=== PATIENT | female | born 1955 | race Hispanic/Latino ===

== ENCOUNTER 2018-02-28 17:58 | Emergency (ER) | payer BC ==
--- NOTE | 2018-02-28 18:58 | ER ---
Nurse's Notes [facility] Name: Sofie Marino Age: 63 yrs Sex: Female : 1955 Arrival Date: 02/28/2018 Time: 18:00 Bed 23 Private MD: Diagnosis: Fracture of fifth metatarsal bone-Right;Fracture of fourth metatarsal bone-Right Presentation: 02/28 18:01 Presenting complaint: Patient states: "I missed a step going down the stairs and fell aa5 forward". Pt reports falling down from about half a flight of stairs. Pt c/o right foot and right ankle pain. Denies LOC, denies head injury. Transition of care: patient was not received from another setting of care. Onset of symptoms was February 28, 2018 at 17:00. Risk Assessment: Do you want to hurt yourself or someone else? Patient reports no desire to harm self or others. Initial Sepsis Screen: Does the patient meet any 2 criteria? No. Patient's initial sepsis screen is negative. Does the patient have a suspected source of infection? No. Patient's initial sepsis screen is negative. Care prior to arrival: None. 18:01 Method Of Arrival: Wheelchair aa5 18:01 Acuity: PRIYANKA 3 aa5 Historical: - Allergies: 18:03 No Known Allergies; aa5 - PMHx: 18:03 cluster headaches; Fibromyalgia; aa5 - PSHx: 18:03 ; aa5 - Immunization history:: Adult Immunizations up to date. - Social history:: Smoking status: Patient/guardian denies using tobacco. - Ebola Screening: : No symptoms or risks identified at this time. Screenin:50 Abuse screen: Denies threats or abuse. Denies injuries from another. Nutritional kr2 screening: No deficits noted. Tuberculosis screening: No symptoms or risk factors identified. Fall Risk Fall in past 12 months (25 points). Gait- Impaired (20 pts.). Assessment: 18:10 General: Appears in no apparent distress. comfortable, well groomed, well developed, kr2 well nourished, Behavior is calm, cooperative, appropriate for age. Pain: Complains of pain in right foot Pain radiates to right leg Pain currently is 10 out of 10 on a pain scale. Quality of pain is described as aching, tender, Is continuous, Alleviated by rest, cold application, Aggravated by weight bearing. Neuro: Level of Consciousness is awake, alert, obeys commands, Oriented to person, place, time, situation, Appropriate for age. Cardiovascular: Capillary refill < 3 seconds in bilateral fingers Patient's skin is warm and dry. Respiratory: Airway is patent Respiratory effort is even, unlabored, Respiratory pattern is regular, symmetrical. GI: Abdomen is flat, non-distended, Patient currently denies nausea, vomiting. EENT: Nares are clear bilaterally Oral mucosa is moist. Derm: Skin is intact, is healthy with good turgor, Skin is pink, warm \\T\\ dry. Musculoskeletal: Circulation, motion, and sensation intact. Swelling present in right foot. Injury Description: fall after missing a step on stairs resulting in foot pain. Denies having pain anywhere else, skin is intact. 19:35 Reassessment: Patient appears in no apparent distress at this time. Patient and/or kr2 family updated on plan of care and expected duration. Pain level reassessed. Patient is alert, oriented x 3, equal unlabored respirations, skin warm/dry/pink. Splint applied by computed tomography technician Rory. Patient tolerated well. Demonstrates proper crutch walking. Vital Signs: 18:03 BP 150 / 86; Pulse 92; Resp 16 S; Temp 98.0(TE); Pulse Ox 96% on R/A; Weight 62.14 kg aa5 (R); Height 4 ft. 11 in. (149.86 cm) (R); Pain 10/10; 18:15 BP 160 / 81 LA (auto/reg); Pulse 91; Resp 19; Pulse Ox 97% on R/A; Pain 8/10; jp3 19:36 BP 156 / 86; Pulse 88; Resp 17; Pulse Ox 99% on R/A; kr2 18:03 Body Mass Index 27.67 (62.14 kg, 149.86 cm) aa5 ED Course: 18:00 Patient arrived in ED. as 18:03 Triage completed. aa5 18:03 Arm band placed on. aa5 18:09 Manoj Man PA is PHCP. cp 18:09 Braden Sweet MD is Attending Physician. cp 18:17 Bed in low position. Call light in reach. Side rails up X 1. Side rails up X2. Warm jp3 blanket given. Pillow given. Ice pack to injury. Pulse ox on. NIBP on. 18:21 Maria D Zurita, RN is Primary Nurse. kr2 18:44 XRAY Foot RIGHT 3 View In Process Unspecified. EDMS 18:57 Brennan Hardin MD is Referral Physician. cp 19:36 No provider procedures requiring assistance completed. Patient did not have IV access kr2 during this emergency room visit. Administered Medications: 18:57 Drug: Hydrocodone-Acetaminophen (7.5 mg-325 mg) 1 tabs Route: PO; kr2 19:38 Follow up: Response: No adverse reaction; Pain is decreased kr2 18:57 Drug: Ibuprofen 800 mg Route: PO; kr2 19:38 Follow up: Response: No adverse reaction kr2 Outcome: 18:58 Discharge ordered by MD. cp 19:36 Discharged to home with crutches, with family. kr2 19:36 Condition: good 19:36 Discharge instructions given to patient, family, Instructed on discharge instructions, follow up and referral plans. medication usage, crutch walking, splint care Demonstrated understanding of instructions, follow-up care, medications, crutch walking, splint care, Prescriptions given X 2. 19:39 Patient left the ED. kr2 Signatures: Dispatcher [employer] EDMS Charisse Mcmahon Audri, RN RN aa5 Manoj Man PA PA cp Maria D Zurita, RN RN kr2 Rik Luna jp3 Corrections: (The following items were deleted from the chart) 19:39 19:35 Reassessment: Patient appears in no apparent distress at this time. Patient kr2 and/or family updated on plan of care and expected duration. Pain level reassessed. Patient is alert, oriented x 3, equal unlabored respirations, skin warm/dry/pink. kr2
--- NOTE | 2018-02-28 18:59 | EDPHYS ---
Physician Documentation [facility] Name: Sofie Marino Age: 63 yrs Sex: Female : 1955 Arrival Date: 02/28/2018 Time: 18:00 Bed 23 Private MD: ED Physician Braden Sweet HPI: 02/28 18:15 This 63 yrs old Female presents to ER via Wheelchair with complaints of Foot cp Injury. 18:15 The patient presents with an injury, pain, that is acute, swelling, tenderness. The cp complaints affect the lateral aspect of right foot. Context: The problem was sustained at home, resulted from a mis-step, while walking down stairs. Onset: The symptoms/episode began/occurred today. Associated signs and symptoms: Pertinent negatives numbness, tingling. Treatment prior to arrival includes: no previous treatment. Historical: - Allergies: 18:03 No Known Allergies; aa5 - PMHx: 18:03 cluster headaches; Fibromyalgia; aa5 - PSHx: 18:03 ; aa5 - Immunization history:: Adult Immunizations up to date. - Social history:: Smoking status: Patient/guardian denies using tobacco. - Ebola Screening: : No symptoms or risks identified at this time. ROS: 18:20 Constitutional: Negative for body aches, chills, fever, poor PO intake. cp 18:20 Eyes: Negative for injury, pain, redness, and discharge. cp 18:20 ENT: Negative for drainage from ear(s), ear pain, sore throat, difficulty swallowing, difficulty handling secretions. 18:20 Cardiovascular: Negative for chest pain, palpitations. 18:20 Respiratory: Negative for cough, shortness of breath, wheezing. 18:20 Abdomen/GI: Negative for abdominal pain, nausea, vomiting, and diarrhea. 18:20 MS/extremity: Positive for ecchymosis, pain, swelling, tenderness, of the lateral aspect of right foot. 18:20 Neuro: Negative for altered mental status, headache, loss of consciousness, weakness. 18:20 All other systems are negative. Exam: 18:27 Constitutional: The patient appears in no acute distress, alert, awake, well developed, cp well nourished. 18:27 Head/Face: Normocephalic, atraumatic. cp 18:27 Eyes: Periorbital structures: appear normal, Conjunctiva: normal, no exudate, no injection, Lids and lashes: appear normal, bilaterally. 18:27 ENT: External ear(s): are unremarkable, Nose: is normal, Mouth: Lips: moist, Oral mucosa: moist, Posterior pharynx: is normal, airway is patent. 18:27 Neck: ROM/movement: is normal, is supple, without pain, no range of motions limitations, no nuchal rigidity. 18:27 Chest/axilla: Inspection: normal. 18:27 Cardiovascular: Rate: normal. 18:27 Respiratory: the patient does not display signs of respiratory distress, Respirations: normal. 18:27 Abdomen/GI: Exam negative for discomfort, distension, guarding, Inspection: abdomen appears normal. 18:27 Musculoskeletal/extremity: Extremities: grossly normal except: noted in the lateral aspect of right foot: ecchymosis, pain, swelling, tenderness, Perfusion: the extremity is normally perfused throughout, Sensation intact. 18:27 Neuro: Orientation: to person, place \T\ time. Mentation: is normal, Cerebellar function: is grossly normal, Motor: moves all fours, strength is normal, Sensation: no obvious gross deficits. Vital Signs: 18:03 BP 150 / 86; Pulse 92; Resp 16 S; Temp 98.0(TE); Pulse Ox 96% on R/A; Weight 62.14 kg aa5 (R); Height 4 ft. 11 in. (149.86 cm) (R); Pain 10/10; 18:15 BP 160 / 81 LA (auto/reg); Pulse 91; Resp 19; Pulse Ox 97% on R/A; Pain 8/10; jp3 19:36 BP 156 / 86; Pulse 88; Resp 17; Pulse Ox 99% on R/A; kr2 18:03 Body Mass Index 27.67 (62.14 kg, 149.86 cm) aa5 Procedures: 19:30 Splinting: Splint applied to right foot using Orthoglass splint, posterior short leg. cp applied by tech. Examined by me, post splint application: neurovascular intact, Patient tolerated well. 19:30 Crutch training provided to patient and/or family. Return demonstration given. cp MDM: 18:09 Patient medically screened. cp 18:58 Data reviewed: vital signs, nurses notes, radiologic studies, plain films, and as a cp result, I will discharge patient. 18:58 Test interpretation: by ED physician or midlevel provider: plain radiologic studies. cp Counseling: I had a detailed discussion with the patient and/or guardian regarding: the historical points, exam findings, and any diagnostic results supporting the discharge/admit diagnosis, radiology results, the need for outpatient follow up, for definitive care, a orthopedic surgeon, to return to the emergency department if symptoms worsen or persist or if there are any questions or concerns that arise at home. 02/28 18:13 Order name: XRAY Foot RIGHT 3 View; Complete Time: 19:09 cp 02/28 18:53 Order name: Splint: posterior lower leg, non-wt bearing; Complete Time: 19:38 cp 02/28 18:58 Order name: Crutches; Complete Time: 19:37 kr2 Administered Medications: 18:57 Drug: Hydrocodone-Acetaminophen (7.5 mg-325 mg) 1 tabs Route: PO; kr2 19:38 Follow up: Response: No adverse reaction; Pain is decreased kr2 18:57 Drug: Ibuprofen 800 mg Route: PO; kr2 19:38 Follow up: Response: No adverse reaction kr2 Disposition: 02/28/18 18:58 Discharged to Home. Impression: Fracture of fifth metatarsal bone - Right, Fracture of fourth metatarsal bone - Right. - Condition is Stable. - Discharge Instructions: Metatarsal Fracture. - Prescriptions for Anaprox 275 mg Oral Tablet - take 1 tablet by ORAL route every 8 hours As needed; 30 tablet. Tylenol- Codeine #3 300-30 mg Oral Tablet - take 2 tablets by ORAL route every 6 hours As needed; 20 tablet. - Medication Reconciliation Form, Thank You Letter, Antibiotic Education, Prescription Opioid Use form. - Follow up: Brennan Hardin MD; When: 2 - 3 days; Reason: Recheck today's complaints. - Problem is new. - Symptoms have improved. Addendum: 03/03/2018 20:40 Co-signature as Attending Physician, Braden Sweet MD. r n Signatures: Dispatcher [employer] EDMS Braden Sweet MD MD rn Calderon, Audri RN RN aa5 Manoj Man PA PA Maria D Barker RN RN kr2 Corrections: (The following items were deleted from the chart) 02/28 19:39 18:58 02/28/2018 18:58 Discharged to Home. Impression: Fracture of fifth metatarsal kr2 bone - Right; Fracture of fourth metatarsal bone - Right. Condition is Stable. Forms are Medication Reconciliation Form, Thank You Letter, Antibiotic Education, Prescription Opioid Use. Follow up: Dr. Brennan Hardin; When: 2 - 3 days; Reason: Recheck today's complaints. Problem is new. Symptoms have improved. cp
[2018-02-28] MEDS ORDERED: HYDROCODONE/APAP 7.5/325 MG TAB ONE (19:00)
[2018-02-28] MEDS ORDERED: IBUPROFEN 400 MG TAB ONE (19:00)
--- NOTE | 2018-02-28 19:08 | RAD REPORT ---
EXAM DESCRIPTION: RAD - Foot Right 3 View - 02/28/2018 6:48 pm CLINICAL HISTORY: Right foot pain status post injury FINDINGS: Comminuted oblique moderately displaced fracture involves the mid fifth metatarsal. An oblique mildly to moderately displaced fracture involves the mid to distal fourth metatarsal No dislocation is seen
== END 2018-02-28 19:39 | disposition home or self-care (01) ==
LOC: ER 17:58
DX: S92.351A Displaced fracture of fifth metatarsal bone, right foot, initial encounter for closed fracture (principal); S92.341A Displaced fracture of fourth metatarsal bone, right foot, initial encounter for closed fracture; W17.89XA Other fall from one level to another, initial encounter; Y93.89 Activity, other specified; Y92.018 Other place in single-family (private) house as the place of occurrence of the external cause
CPT/HCPCS: 99284

== ENCOUNTER 2019-05-14 09:12 | Emergency (ER) | payer BC ==
--- OUTSIDE RECORDS SUMMARY | 2019-05-14 09:16 | XMS REPORT ---
:1955 Author Organization e[employer] Care Team Providers Name Role Phone Brennan Hardin Provider Role Unavailable Allergies, Adverse Reactions, Alerts Substance Reaction Event Type N.K.D.A. Info Not Available Non Drug Allergy Problems Problem Type Condition Code Onset Dates Condition Status Assessment Pain, joint, foot, right M25.571 Active Assessment Closed displaced fracture of S92.341D Active fourth metatarsal bone of right foot with routine healing, subsequent encounter Assessment Closed displaced fracture of fifth S92.351D Active metatarsal bone of right foot with routine healing, subsequent encounter Medications Medication Code Code Instructions Start End Status Dosage System Date Date Amitriptyline HCl [facility] 60496063602 75 MG Oral Active TK 1-2 T PO QHS Losartan [facility] 27345048953 50 MG Oral Active TK 1 T PO Potassium ONCE D Zolpidem Tartrate [facility] 96768960960 10 MG Oral Active (Schedule IV Drug) TK 1 T PO ONCE A DAY HS PRN Tylenol with [facility] 25063018536 300-30 MG Mar 11, Active 1 tablet Codeine #3 Orally every 6 2018 as needed hrs Naproxen Sodium ND 40186586260 275 MG Oral Active TK 1 T PO EVERY 8 HOURS NEEDED FOR PAIN Results No Known Results Summary Purpose eClinicalWorks Submission
--- OUTSIDE RECORDS SUMMARY | 2019-05-14 09:16 | XMS REPORT ---
:1955 Author Organization [employer] Care Team Providers Name Role Phone Brennan Hardin Provider Role Unavailable Allergies No Known Allergies Problems No Known Problems Medications Medication Code Code Instructions Start End Date Status Dosage System Date Tylenol with [facility] 28227811019 300-30 MG Orally Mar 11, Active 1 tablet Codeine #3 every 6 hrs 2018 as needed Results No Known Results Summary Purpose eClinicalWorks Submission
--- OUTSIDE RECORDS SUMMARY | 2019-05-14 09:16 | XMS REPORT ---
[...] Start End Status Dosage System Date Date Tylenol with [facility] 53682745128 300-30 MG Mar 11, Active 1 tablet Codeine #3 Orally every 6 2018 as needed hrs Losartan ND 29080789007 50 MG Oral Active TK 1 T PO Potassium ONCE D Zolpidem Tartrate ND 66050285533 10 MG Oral Active (Schedule IV Drug) TK 1 T PO ONCE A DAY HS PRN Amitriptyline HCl ND 63835949228 75 MG Oral Active TK 1-2 T PO QHS Naproxen Sodium ND 31586209530 275 MG Oral Active TK 1 T PO EVERY 8 HOURS NEEDED FOR PAIN Results No Known Results Summary Purpose eClinicalWorks Submission
--- OUTSIDE RECORDS SUMMARY | 2019-05-14 09:16 | XMS REPORT ---
:1955 Author Organization [employer] Care Team Providers Name Role Phone Brennan Hardin Provider Role Unavailable Allergies, Adverse Reactions, Alerts Substance Reaction Event Type N.K.D.A. Info Not Available Non Drug Allergy Problems Problem Type Condition Code Onset Dates Condition Status Assessment Right foot pain M79.671 Active Assessment Closed displaced fracture of S92.341A Active fourth metatarsal bone of right foot, initial encounter Assessment Closed displaced fracture of fifth S92.351A Active metatarsal bone of right foot, initial encounter Medications Medication Code Code Instructions Start End Status Dosage System Date Date Amitriptyline HCl [facility] 49682244074 75 MG Oral Active TK 1-2 T PO QHS Acetaminophen-Cod ND 44592953132 300-30 MG Oral Active (Schedule eine #3 III Drug) TK 2 T PO EVERY 6 HOURS NEEDED FOR PAIN Losartan ND 24929096605 50 MG Oral Active TK 1 T PO Potassium ONCE D Zolpidem Tartrate ND 03819331132 10 MG Oral Active (Schedule IV Drug) TK 1 T PO ONCE A DAY HS PRN Naproxen Sodium ND 75863731154 275 MG Oral Active TK 1 T PO EVERY 8 HOURS NEEDED FOR PAIN Results No Known Results Summary Purpose eClinicalWorks Submission
--- OUTSIDE RECORDS SUMMARY | 2019-05-14 09:16 | XMS REPORT ---
:1955 Author Organization [employer] Care Team Providers Name Role Phone Brennan Hardin Provider Role Unavailable Allergies, Adverse Reactions, Alerts Substance Reaction Event Type N.K.D.A. Info Not Available Non Drug Allergy Problems Problem Type Condition Code Onset Dates Condition Status Assessment Pain, joint, foot, right M25.571 Active Assessment Plantar fasciitis of right foot M72.2 Active Assessment Closed displaced fracture of S92.341D Active fourth metatarsal bone of right foot with routine healing, subsequent encounter Assessment Achilles tendinitis, right leg M76.61 Active Assessment Closed displaced fracture of fifth S92.351D Active metatarsal bone of right foot with routine healing, subsequent encounter Medications Medication Code Code Instructions Start End Status Dosage System Date Date Amitriptyline HCl ND 77213267783 75 MG Oral Active TK 1-2 T PO QHS Tylenol with [facility] 28985272580 300-30 MG Mar 11, Active 1 tablet Codeine #3 Orally every 6 2018 as needed hrs Losartan ND 09804490358 50 MG Oral Active TK 1 T PO Potassium ONCE D Zolpidem Tartrate ND 14976107365 10 MG Oral Active (Schedule IV Drug) TK 1 T PO ONCE A DAY HS PRN Results No Known Results Summary Purpose eClinicalWorks Submission
--- OUTSIDE RECORDS SUMMARY | 2019-05-14 09:16 | XMS REPORT ---
:1955 Author Organization e[employer]Works Care Team Providers Name Role Phone Brennan Hardin Provider Role Unavailable Allergies, Adverse Reactions, Alerts Substance Reaction Event Type N.K.D.A. Info Not Available Non Drug Allergy Problems Problem Type Condition Code Onset Dates Condition Status Assessment Pain in joint of right foot M25.571 Active Assessment Closed displaced fracture of S92.341D Active fourth metatarsal bone of right foot with routine healing, subsequent encounter Assessment Closed displaced fracture of fifth S92.351D Active metatarsal bone of right foot with routine healing, subsequent encounter Medications Medication Code Code Instructions Start End Status Dosage System Date Date Amitriptyline HCl ND 30598827961 75 MG Oral Active TK 1-2 T PO QHS Naproxen Sodium [facility] 71681307718 275 MG Oral Active TK 1 T PO EVERY 8 HOURS NEEDED FOR PAIN Tylenol with [facility] 53919635237 300-30 MG Mar 11, Active 1 tablet Codeine #3 Orally every 6 2018 as needed hrs Zolpidem Tartrate ND 28340775629 10 MG Oral Active (Schedule IV Drug) TK 1 T PO ONCE A DAY HS PRN Losartan ND 99608893447 50 MG Oral Active TK 1 T PO Potassium ONCE D Results No Known Results Summary Purpose eClinicalWorks Submission
[2019-05-14] MEDS ORDERED: LEVALBUTEROL 1.25 MG/3 ML NEB ONE (09:42)
--- NOTE | 2019-05-14 10:30 | RAD REPORT ---
EXAM DESCRIPTION: Indigo Aquino And Duy (2 Views)05/14/2019 10:17 am CLINICAL HISTORY: Cough COMPARISON: None FINDINGS: Mild reticular opacities suspected within the right lower lobe The lung appears clear of acute infiltrate. The heart is normal size IMPRESSION: Mild reticular opacities right lower lobe may indicate an atypical pneumonia
--- NOTE | 2019-05-14 10:47 | ER ---
Nurse's Notes [facility] Name: Sofie Marino Age: 64 yrs Sex: Female : 1955 Arrival Date: 05/14/2019 Time: 09:15 Bed 17 Private MD: Mike Arnett Diagnosis: Pneumonia Presentation: 05/14 09:20 Presenting complaint: Patient states: seen at urgent care Friday, diagnosed with flu, iw tomorrow is last day for Tamiflu, went back to work yesterday and fever came back, up to 102.1, fever this morning 100.1, took Tylenol, feels real congested in her chest and ears hurt and has headache. Transition of care: patient was not received from another setting of care. Onset of symptoms was May 10, 2019. Risk Assessment: Do you want to hurt yourself or someone else? Patient reports no desire to harm self or others. Initial Sepsis Screen: Does the patient meet any 2 criteria? No. Patient's initial sepsis screen is negative. Does the patient have a suspected source of infection? No. Patient's initial sepsis screen is negative. Care prior to arrival: None. 09:20 Method Of Arrival: Ambulatory iw 09:20 Acuity: PRIYANKA 4 iw Historical: - Allergies: 09:23 No Known Allergies; iw - Home Meds: 09:23 Ambien Oral once daily [Active]; Amitriptyline Oral 1 tab once daily [Active]; iw - PMHx: 09:23 cluster headaches; Fibromyalgia; iw - PSHx: 09:23 ; iw - Immunization history:: Adult Immunizations not up to date. - Social history:: Smoking status: Patient/guardian denies using tobacco. - Ebola Screening: : Patient negative for fever greater than or equal to 101.5 degrees Fahrenheit, and additional compatible Ebola Virus Disease symptoms Patient denies exposure to infectious person Patient denies travel to an Ebola-affected area in the 21 days before illness onset No symptoms or risks identified at this time. - Family history:: not pertinent. - Hospitalizations: : No recent hospitalization is reported. Screenin:50 Abuse screen: Denies threats or abuse. Nutritional screening: No deficits noted. em Tuberculosis screening: No symptoms or risk factors identified. Fall Risk None identified. Assessment: 09:50 General: Appears in no apparent distress. comfortable, Behavior is calm, cooperative, em appropriate for age, Reports fever for > 3 days, feeling ill for > 3 days, fatigue for >3 days. Pain: Denies pain. Neuro: Level of Consciousness is awake, alert, obeys commands, Oriented to person, place, time, situation, Appropriate for age. Cardiovascular: Capillary refill < 3 seconds Patient's skin is warm and dry. Respiratory: Reports cough that is productive, Airway is patent Respiratory effort is even, unlabored, Respiratory pattern is regular, symmetrical, Breath sounds with wheezes in right posterior upper lobe, right posterior middle lobe and right posterior lower lobe Denies shortness of breath. : Denies burning with urination. Derm: Skin is intact, is healthy with good turgor, Skin is pink, warm \T\ dry. Musculoskeletal: Capillary refill < 3 seconds, Range of motion: intact in all extremities. 10:40 Reassessment: Dr. Sweet at bedside discussing POC. em Vital Signs: 09:23 BP 117 / 69; Pulse 87; Resp 16 S; Temp 97.7; Pulse Ox 96% on R/A; Weight 61.69 kg; iw Height 5 ft. (152.40 cm); Pain 0/10; 09:23 Body Mass Index 26.56 (61.69 kg, 152.40 cm) iw ED Course: 09:15 Patient arrived in ED. mr 09:16 Mike Arnett is Private Physician. mr 09:22 Triage completed. iw 09:23 Arm band placed on. iw 09:27 Live Atwood LVN is Primary Nurse. em 09:27 Braden Sweet MD is Attending Physician. rn 09:43 Strep Sent. [facility] 09:43 Urine collected: clean catch specimen, clear, Strep swab sent to lab. mh5 09:44 Patient has correct armband on for positive identification. Bed in low position. Call 5 light in reach. Pulse ox on. NIBP on. 10:18 XRAY Chest Pa And Lat (2 Views) In Process Unspecified. EDMS 10:53 No provider procedures requiring assistance completed. Patient did not have IV access em during this emergency room visit. Administered Medications: 09:57 Drug: Xopenex 1.25 mg Route: Inhalation; em 10:17 Follow up: Response: No adverse reaction; Marked relief of symptoms em Outcome: 10:45 Discharge ordered by . rn 10:53 Discharged to home ambulatory, with family. em 10:53 Condition: good 10:53 Discharge instructions given to patient, family, Instructed on discharge instructions, follow up and referral plans. medication usage, Demonstrated understanding of instructions, follow-up care, medications, Prescriptions given X 2. 10:54 Patient left the ED. em Signatures: Dispatcher [employer] Za Murdock, Live, HONING JOB SETTER HONING JOB SETTER em Isi Belle, Braden Case RN, MD MD rn Martinez, Maria [facility]
--- NOTE | 2019-05-14 10:48 | EDPHYS ---
Physician Documentation [facility] Name: Sofie Marino Age: 64 yrs Sex: Female : 1955 Arrival Date: 05/14/2019 Time: 09:15 Bed 17 Private MD: Mike Arnett ED Physician Braden Sweet HPI: 05/14 09:39 This 64 yrs old Female presents to ER via Ambulatory with complaints of Fever. rn 09:39 The patient reports fever, that was measured at 102 degrees Fahrenheit. Onset: The rn symptoms/episode began/occurred 1 week(s) ago. Modifying factors: there are no obvious modifying factors. Associated signs and symptoms: Pertinent positives: cough, runny nose, sore throat. Severity of symptoms: At their worst the symptoms were mild in the emergency department the symptoms are unchanged. The patient has not experienced similar symptoms in the past. The patient has been recently seen by a physician: The patient has been recently seen at an urgent care. Reports diagnosed Friday with flu, felt like was getting better, still taking tamiflu, noticed fever again last night, no new symptoms, + congestion/runny nose/cough/sore throat. No vomiting/diarrhea, no rash. . Historical: - Allergies: 09:23 No Known Allergies; iw - Home Meds: 09:23 Ambien Oral once daily [Active]; Amitriptyline Oral 1 tab once daily [Active]; iw - PMHx: 09:23 cluster headaches; Fibromyalgia; iw - PSHx: 09:23 ; iw - Immunization history:: Adult Immunizations not up to date. - Social history:: Smoking status: Patient/guardian denies using tobacco. - Ebola Screening: : Patient negative for fever greater than or equal to 101.5 degrees Fahrenheit, and additional compatible Ebola Virus Disease symptoms Patient denies exposure to infectious person Patient denies travel to an Ebola-affected area in the 21 days before illness onset No symptoms or risks identified at this time. - Family history:: not pertinent. - Hospitalizations: : No recent hospitalization is reported. ROS: 09:39 Constitutional: + fever Eyes: Negative for injury, pain, redness, and discharge, ENT: + rn runny nose and congestion Neck: Negative for injury, pain, and swelling, Cardiovascular: Negative for chest pain, palpitations, and edema, Respiratory: + cough Abdomen/GI: Negative for abdominal pain, nausea, vomiting, diarrhea, and constipation, MS/Extremity: Negative for injury and deformity, Skin: Negative for injury, rash, and discoloration, Neuro: Negative for headache, numbness, tingling, and seizure. Exam: 09:39 Constitutional: This is a well developed, well nourished patient who is awake, alert, rn and in no acute distress. Head/Face: Normocephalic, atraumatic. Eyes: Pupils equal round and reactive to light, extra-ocular motions intact. Lids and lashes normal. Conjunctiva and sclera are non-icteric and not injected. Cornea within normal limits. Periorbital areas with no swelling, redness, or edema. ENT: + clear nasal drainage, mild pharyngeal erythema, no stridor or swelling. Neck: Trachea midline, no thyromegaly or masses palpated, and no cervical lymphadenopathy. Supple, full range of motion without nuchal rigidity, or vertebral point tenderness. No Meningismus. Cardiovascular: Regular rate and rhythm. No pulse deficits. Respiratory: Faint exp wheezing bilaterally, no retractions, speaking full sentences Abdomen/GI: soft, non-tender MS/ Extremity: Pulses equal, no cyanosis. Neurovascular intact. Full, normal range of motion. Equal circumference. Neuro: Awake and alert, GCS 15, oriented to person, place, time, and situation. Cranial nerves II-XII grossly intact. Motor strength 5/5 in all extremities. Sensory grossly intact. Cerebellar exam normal. Vital Signs: 09:23 BP 117 / 69; Pulse 87; Resp 16 S; Temp 97.7; Pulse Ox 96% on R/A; Weight 61.69 kg; iw Height 5 ft. (152.40 cm); Pain 0/10; 09:23 Body Mass Index 26.56 (61.69 kg, 152.40 cm) iw MDM: 09:27 Patient medically screened. rn 10:44 Differential diagnosis: viral Infection, bacterial infection, URI, pneumonia. Data rn reviewed: vital signs, nurses notes, lab test result(s), radiologic studies, plain films, and as a result, I will discharge patient. Counseling: I had a detailed discussion with the patient and/or guardian regarding: the historical points, exam findings, and any diagnostic results supporting the discharge/admit diagnosis, lab results, radiology results, the need for outpatient follow up, to return to the emergency department if symptoms worsen or persist or if there are any questions or concerns that arise at home. Special discussion: I discussed with the patient/guardian in detail that at this point there is no indication for admission to the hospital. It is understood, however, that if the symptoms persist or worsen the patient needs to return immediately for re-evaluation. ED course: Pt improved, no oxygen requirement, now has superimposed pneumonia, will dc home with inhaler for wheezing and levaquin.. 05/14 09:39 Order name: Strep rn 05/14 10:02 Order name: Group A Streptococcus Rapid Sc; Complete Time: 10:35 EDMS 05/14 09:39 Order name: XRAY Chest Pa And Lat (2 Views); Complete Time: 10:35 rn 05/14 09:39 Order name: Urine Dipstick-Ancillary (obtain specimen); Complete Time: 09:42 rn 05/14 10:13 Order name: Throat Culture EDMS Administered Medications: 09:57 Drug: Xopenex 1.25 mg Route: Inhalation; em 10:17 Follow up: Response: No adverse reaction; Marked relief of symptoms em Disposition: 05/14/19 10:45 Discharged to Home. Impression: Pneumonia. - Condition is Stable. - Discharge Instructions: Community-Acquired Pneumonia, Adult. - Prescriptions for Levaquin 500 mg Oral Tablet - take 1 tablet by ORAL route once daily for 7 days; 7 tablet. Albuterol Sulfate 90 mcg/actuation - inhale 1-2 puff by INHALATION route every 4-6 hours; 1 Inhaler. - Medication Reconciliation Form, Thank You Letter, Antibiotic Education, Prescription Opioid Use form. - Follow up: Private Physician; When: 2 - 3 days; Reason: Recheck today's complaints, Re-evaluation by your physician. - Problem is new. - Symptoms have improved. Signatures: Dispatcher [employer] [place], HOLISTIC SPECIALIST HOLISTIC SPECIALIST em Isi Belle RN RN iw Braden Sweet MD MD rn imcu: (The following items were deleted from the chart) 10:54 10:45 05/14/2019 10:45 Discharged to Home. Impression: Pneumonia. Condition is Stable. em Forms are Medication Reconciliation Form, Thank You Letter, Antibiotic Education, Prescription Opioid Use. Follow up: Private Physician; When: 2 - 3 days; Reason: Recheck today's complaints, Re-evaluation by your physician. Problem is new. Symptoms have improved. rn
[2019-05-14 10:59] VITALS: BP 117/69; TEMP 97.7; O2SAT 96
== END 2019-05-14 10:54 | disposition home or self-care (01) ==
LOC: ER 09:12
DX: J18.9 Pneumonia, unspecified organism (principal)
CPT/HCPCS: 71046; 87070; 87081; 99284